=== PATIENT | female | born 1965 | race Caucasian/White ===

== ENCOUNTER 2021-10-09 09:55 | Inpatient (IN) | payer BC, OTHER ==
[~2021-10-09] VITALS: Ht 152.4 cm; Wt 67.5 kg
[2021-10-09 10:34] LABS: Urine Bacteria FEW /hpf (None Seen); Urine Blood Negative /uL (Negative); Urine Mucus FEW (None Seen); Urine Specific Gravity 1.029 (1.001-1.035); Urine WBC 2 /hpf (0 - 5)
[2021-10-09 10:47] LABS: Basophils # (auto) 0 10 ^3/uL (0-0.2); Basophils % (auto) 0.2 % (0.0-2.0); Eosinophils # (auto) 0.1 10 ^3/uL (0-0.8); Eosinophils % (auto) 0.4 % (0.0-7.0); Hematocrit 47.8 % (36.0-46.0); Hemoglobin 16.2 g/dL (12.2-16.2); Lymphocytes # (auto) 1.4 10 ^3/uL (0.4-5.4); Lymphocytes % (auto) 11.1 % (10.0-50.0); Mean Corpuscular Hemoglobin 28.9 pg (28.0-32.0); Mean Corpuscular Hgb Conc. 33.9 g/dL (32.0-36.0); Mean Corpuscular Volume 85.2 fL (80.0-100.0); Monocytes # (auto) 0.8 10 ^3/uL (0-1.3); Monocytes % (auto) 6.4 % (0.0-12.0); Neutrophils # (auto) 10.1 10 ^3/uL (1.6-8.6); Neutrophils % (auto) 81.9 % (37.0-80.0); Red Blood Cells 5.61 10^6/uL (4.0-5.20); Red Cell Distribution Width 14.1 % (11.8-14.3); White Blood Cell 12.4 10^3/uL (4.4-10.8)
[2021-10-09 11:05] LABS: Albumin 3.9 g/dL (3.4-5.0); Calcium 9.1 mg/dL (8.5-10.1); Potassium 4.1 mmol/L (3.5-5.1)
[2021-10-09 11:08] LABS: BUN/Creatinine Ratio 18.5; Bilirubin, Total 1.3 mg/dL (0.2-1.0); Total Protein 7.4 g/dL (6.4-8.2)
[2021-10-09] MEDS ORDERED: PIPERACILLIN-TAZOB 3.375GM 100 ML IV ONE (12:30)
[2021-10-09] MEDS ORDERED: SODIUM CHLORIDE 0.9% 1,000 ML IV ONE ×2 (14:15)
[2021-10-09] MEDS ORDERED: ONDANSETRON HCL 4 MG/2 ML VIAL IV PRN (16:15)
[2021-10-09] MEDS ORDERED: MORPHINE SULFATE INJ 2 MG/ml SYRG IV PRN (16:15)
[2021-10-09 16:50] LABS: INR 0.97 (0.9-1.15)
[2021-10-09] MEDS: SODIUM CHLORIDE 0.9% 1,000 ML IV SCH (16:59)
[2021-10-09 22:00] VITALS: BP 149/86
[2021-10-09] MEDS: PIPERACILLIN-TAZOB 3.375GM 100 ML IV SCH (22:51)
[2021-10-10] MEDS: PIPERACILLIN-TAZOB 3.375GM 100 ML IV SCH ×4 (01:20→21:06)
[2021-10-10] MEDS: SODIUM CHLORIDE 0.9% 1,000 ML IV SCH ×3 (02:15→21:07)
[2021-10-10] MEDS ORDERED: METO-289 PO (04:41)
[2021-10-10 05:00] VITALS: BP 104/63
[2021-10-10 05:57] LABS: Basophils # (auto) 0 10 ^3/uL (0-0.2); Basophils % (auto) 0.3 % (0.0-2.0); Eosinophils # (auto) 0.1 10 ^3/uL (0-0.8); Eosinophils % (auto) 0.9 % (0.0-7.0); Hematocrit 42.4 % (36.0-46.0); Hemoglobin 14.5 g/dL (12.2-16.2); Lymphocytes # (auto) 2.1 10 ^3/uL (0.4-5.4); Lymphocytes % (auto) 21.6 % (10.0-50.0); Mean Corpuscular Hemoglobin 29.1 pg (28.0-32.0); Mean Corpuscular Hgb Conc. 34.2 g/dL (32.0-36.0); Monocytes # (auto) 0.8 10 ^3/uL (0-1.3); Monocytes % (auto) 8.2 % (0.0-12.0); Neutrophils # (auto) 6.7 10 ^3/uL (1.6-8.6); Nucleated Red Blood Cells % 0.1 %; Red Blood Cells 4.98 10^6/uL (4.0-5.20); Red Cell Distribution Width 14.3 % (11.8-14.3); White Blood Cell 9.7 10^3/uL (4.4-10.8)
[2021-10-10 06:13] LABS: Calcium 8.1 mg/dL (8.5-10.1); Potassium 3.7 mmol/L (3.5-5.1)
[2021-10-10 06:17] LABS: BUN/Creatinine Ratio 11.5; Bilirubin, Total 1.8 mg/dL (0.2-1.0); Total Protein 5.7 g/dL (6.4-8.2)
[2021-10-10] MEDS ORDERED: ceFAZolin 1GM/50ML 100 ML IV ONE (07:00)
[2021-10-10] MEDS ORDERED: MIDAZOLAM HCL 2MG/2ML 2ml VIAL (1mg/ml) ONE (07:51)
[2021-10-10] MEDS ORDERED: LIDOCAINE 2% (LOCAL ANESTH.) PF 5ml SDV ONE (07:51)
[2021-10-10] MEDS ORDERED: ONDANSETRON HCL 4 MG/2 ML VIAL ONE (07:51)
[2021-10-10] MEDS ORDERED: METOCLOPRAMIDE HCL 5MG/ml INJ 2ml VIAL ONE (07:51)
[2021-10-10] MEDS ORDERED: DexAMETHasone SOD PHOS 10MG/1ML VIAL INJ ONE (07:51)
[2021-10-10] MEDS ORDERED: KETOROLAC TROMETH 30 MG/ML 1ML VIAL ONE (07:51)
[2021-10-10] MEDS ORDERED: fentaNYL CITRATE 100 MCG/2 ML VL ONE (07:51)
[2021-10-10] MEDS ORDERED: ROCURONIUM 10MG/ML 10ML VIAL IV ONE (07:51)
[2021-10-10] MEDS ORDERED: PROPOFOL 10 MG/ML 20 ML IV ONE (07:52)
[2021-10-10] MEDS ORDERED: SUCCINYLCHOLINE CHLORIDE 20 MG/ML 10ML VIAL IV ONE (09:29)
[2021-10-10] MEDS ORDERED: PHENYLEPHRINE HCL 10 MG/ML VL ONE (09:38)
[2021-10-10] MEDS ORDERED: BUPIVACAINE 0.25% INJ 50ML VIAL ONE (09:53)
[2021-10-10] MEDS ORDERED: LIDOCAINE 1%HCL (LOCAL ANESTH) 10 ML MDV ONE (09:53)
[2021-10-10] MEDS: ENOXAPARIN SOD 40 MG/0.4 ML SYRINGE SC SCH (10:00)
[2021-10-10] MEDS ORDERED: NEOSTIGMINE 1 MG/ML INJ (10mg/10ML VIAL) ONE (10:16)
[2021-10-10] MEDS ORDERED: GLYCOPYRROLATE 0.2 MG/ML 1ML VIAL ONE (10:16)
[2021-10-10] MEDS ORDERED: HYDROmorphone HCL 2 MG/ML VL/or syr IV PRN (10:30)
[2021-10-10] MEDS ORDERED: ONDANSETRON HCL 4 MG/2 ML VIAL IV PRN (10:30)
[2021-10-10 13:00] VITALS: BP 93/52
[2021-10-10] MEDS: metroNIDAZOLE 500MG/100ML 100 ML IV SCH ×2 (13:04→21:06)
[2021-10-10 17:00] VITALS: BP 94/54
[2021-10-10 21:49] VITALS: BP 130/76
[2021-10-11] MEDS: SODIUM CHLORIDE 0.9% 1,000 ML IV SCH ×2 (04:30→14:11)
[2021-10-11 05:00] VITALS: BP 120/73
[2021-10-11] MEDS: metroNIDAZOLE 500MG/100ML 100 ML IV SCH ×2 (05:30→14:11)
[2021-10-11] MEDS: PIPERACILLIN-TAZOB 3.375GM 100 ML IV SCH ×2 (05:30→14:12)
[2021-10-11 08:35] VITALS: BP 124/70
[2021-10-11] MEDS: ENOXAPARIN SOD 40 MG/0.4 ML SYRINGE SC SCH (08:55)
[2021-10-11] MEDS ORDERED: PANTOPRAZOLE 40 MG/10 ML VIAL INJ IV SCH (10:00)
[2021-10-11 12:30] VITALS: BP 130/74
[2021-10-11] MEDS ORDERED: LEVO500T31 PO (12:50)
[2021-10-11] MEDS ORDERED: HYDR-4902 PO (12:50)
[2021-10-11] MEDS ORDERED: METR500T PO (12:50)
[2021-10-11 13:56] VITALS: BP 130/74
== END 2021-10-11 16:34 | disposition home or self-care (01) | DRG 854 ==
LOC: ER 09:55 → OVERFLOW 16:10 → EAST 20:40
PROVIDERS: ADMIT Internal Medicine; ATTEND Family Medicine
PROC: 0DTJ4ZZ Resection of Appendix, Percutaneous Endoscopic Approach (ICD-10-PCS; principal; 2021-10-10 09:24)
DX: A41.9 Sepsis, unspecified organism (principal); K35.80 Unspecified acute appendicitis; I10 Essential (primary) hypertension; E86.0 Dehydration; Z20.822 Contact with and (suspected) exposure to COVID-19
CPT/HCPCS: 36415; 71045; 74176; 80053; 81001; 83690; 85025; 85610; 85730; 86850; 86900; 86901; 93005; 96365; 96366; 96375; 99291; C9113; G0378; J0330; J0690; J1100; J1885; J2001; J2250; J2405; J2543; J2704; J3490